=== PATIENT | male | born 1975 | race Caucasian/White ===

== ENCOUNTER 2020-01-13 08:28 | Emergency (ER) | payer OTHER ==
[~2020-01-13] VITALS: Ht 175.3 cm; Wt 70.8 kg
[2020-01-13 08:39] VITALS: Ht 175.3 cm; Wt 70.8 kg
[2020-01-13 08:59] VITALS: BP 165/109
== END 2020-01-13 09:54 | disposition home or self-care (01) ==
LOC: ED 08:28
DX: L25.9 Unspecified contact dermatitis, unspecified cause (principal)
CPT/HCPCS: J1200; J7512